=== PATIENT | female | born 1960 | race African-American/Black ===

== ENCOUNTER 2023-08-13 22:24 | Emergency (ER) | payer OTHER ==
[~2023-08-13] VITALS: Ht 160 cm; Wt 60.0 kg
[2023-08-13 22:28] VITALS: O2SAT 98
[2023-08-13] MEDS ORDERED: KETOROLAC 30MG/ML VIAL IV STA (22:35)
[2023-08-13] MEDS: SODIUM CHLORIDE 0.9% 1,000 ML IV ONE (22:45)
[2023-08-13 23:51] LABS: BASOPHILS % 0.7 % (0.0-2.0); EOSINOPHILS % 0.7 % (0.0-5.0); HEMATOCRIT. 39.2 % (36.0-48.0); HEMOGLOBIN. 12.8 g/dL (12.0-16.0); MEAN CORPUSCULAR HEMOGLOBIN 30.2 pg (28.0-32.0); MEAN CORPUSCULAR HGB CONC 32.7 g/dL (31.0-37.0); MEAN CORPUSCULAR VOLUME 92.1 fL (81.0-99.0); MEAN PLATELET VOLUME 7.7 fl (7.4-10.4); MONOCYTES % 11.4 % (2.0-8.0); NEUTROPHILS % 58.2 % (40.0-76.0); PLATELET 325 x1000/uL (130-400); RED BLOOD CELL COUNT 4.26 mill/uL (4.2-5.4); RED CELL DISTRIBUTION WIDTH 13.2 % (11.6-14.6); WHITE BLOOD COUNT 8.7 x1000/uL (4.5-11.0)
[2023-08-13] MEDS: KETOROLAC 30MG/ML VIAL IV NR (23:54)
[2023-08-13 23:57] LABS: CHLORIDE 107 mEq/L (98-107); POTASSIUM 3.6 mEq/L (3.5-5.1); SODIUM 141 mEq/L (136-145)
[2023-08-13 23:58] LABS: CARBON DIOXIDE 25 mEq/L (21-32)
[2023-08-14 00:03] LABS: CREATININE 0.6 mg/dL (0.6-1.0); GLUCOSE 92 mg/dL (70-105); UREA NITROGEN BLOOD 7 mg/dL (9-23)
[2023-08-14 00:04] LABS: INR 1.1; PROTHROMBIN TIME 12.2 sec (9.6-11.0); TROPONIN I HIGH SENSITIVITY < 4 ng/L (3.0-34)
[2023-08-14 00:05] LABS: ALANINE AMINOTRANSFERASE 16 IU/L (10-49); ALBUMIN 4.5 g/dL (3.2-4.8); ASPARTATE AMINOTRANSFERASE 26 IU/L (<34); BILIRUBIN TOTAL 0.3 mg/dL (0.1-1.0); PROTEIN TOTAL 7.8 g/dL (6.0-8.3)
[2023-08-14 00:06] LABS: BILIRUBIN DIRECT < 0.1 mg/dL (<=3.0)
[2023-08-14 00:28] LABS: CLARITY URINE CLEAR (CLEAR); COLOR URINE YELLOW (YELLOW); GLUCOSE URINE NEGATIVE (NEGATIVE); KETONES URINE 1+ (NEGATIVE); LEUKOCYTE ESTERASE URINE NEGATIVE (NEGATIVE); NITRITE URINE NEGATIVE (NEGATIVE); OCCULT BLOOD URINE NEGATIVE (NEGATIVE); PH URINE 6.5 (4.5-8.0); PROTEIN URINE NEGATIVE (NEGATIVE); SPECIFIC GRAVITY URINE 1.023 (1.005-1.030); UROBILINOGEN URINE 0.2 E.U./dL (0.2-1.0)
[2023-08-14] MEDS: IOHEXOL-300 100 ML BOTTLE ONE (00:59)
[2023-08-14] MEDS: HYDRALAZINE 20MG/ML VIAL IV ONE (02:07)
[2023-08-14] MEDS: CEFTRIAXONE 1GM/50ML 50 ML IV ONE (02:07)
[2023-08-14] MEDS: AZITHROMYCIN 500MG/250ML 250 ML IV SCH (02:08)
[2023-08-14] MEDS: MORPHINE SULFATE 2 MG/ML CPJ (NOT FOR IM USE) IV ONE (02:21)
[2023-08-14 02:35] LABS: TROPONIN I HIGH SENSITIVITY 6 ng/L (3.0-34)
[2023-08-14] MEDS ORDERED: AZIT500T8 MT (03:58)
[2023-08-14] MEDS: ACETAMINOPHEN 325MG TABLET PO ONE (05:05)
[2023-08-14 05:10] VITALS: BP 152/77; PULSE 88; RESP 21; TEMP 97.8
== END 2023-08-14 05:51 | disposition home or self-care (01) ==
LOC: ER 22:24
DX: J18.9 Pneumonia, unspecified organism (principal); I10 Essential (primary) hypertension
CPT/HCPCS: 99285; 96361; 71045; 96375 ×2; 80076; 80048; 83690; 85025; 85610; 84484 ×2; 36415 ×2; 74177; 96365; 76705; 81003; 96368; J1885; J7030; Q9967; J0456; J0696; J0360

== ENCOUNTER 2024-01-28 14:32 | Emergency (ER) | payer MEDICAID ==
[~2024-01-28] VITALS: Ht 167.6 cm; Wt 81.0 kg
[~2024-01-28 14:32] MED LIST: AZIT500T8 MT
[2024-01-28 14:34] VITALS: TEMP 98.6; O2SAT 99
[2024-01-28 15:08] VITALS: BP 176/109; PULSE 92; RESP 16
[2024-01-28] MEDS: IBUPROFEN 600MG TABLET PO ONE (15:08)
[2024-01-28] MEDS ORDERED: IBUP-2029 MT (16:21)
== END 2024-01-28 17:15 | disposition home or self-care (01) ==
LOC: ER 14:43
DX: S92.901A Unspecified fracture of right foot, initial encounter for closed fracture (principal); Z86.59 Personal history of other mental and behavioral disorders; W18.30XA Fall on same level, unspecified, initial encounter; Y93.89 Activity, other specified; Y92.89 Other specified places as the place of occurrence of the external cause; Y99.8 Other external cause status
CPT/HCPCS: 29515; 73610; 73630; 99284

== ENCOUNTER 2024-05-18 12:35 | Emergency (ER) | payer MEDICAID ==
[~2024-05-18] VITALS: Ht 165.1 cm; Wt 60.0 kg
[~2024-05-18 12:35] MED LIST changes: +IBUP-2029 MT
[2024-05-18 12:38] VITALS: O2SAT 98
[2024-05-18 13:17] VITALS: BP 177/99; PULSE 88; RESP 16; TEMP 36.7; O2SAT 98
[2024-05-18 14:52] LABS: CHLORIDE 101 mEq/L (98-107); POTASSIUM 3.2 mEq/L (3.5-5.1); SODIUM 142 mEq/L (136-145)
[2024-05-18 14:53] LABS: CALCIUM 9.6 mg/dL (8.7-10.4); CARBON DIOXIDE 28 mEq/L (21-32)
[2024-05-18 14:57] LABS: BASOPHILS % 0.9 % (0.0-2.0); EOSINOPHILS % 0.4 % (0.0-5.0); HEMATOCRIT. 37.2 % (36.0-48.0); LYMPHOCYTES % 40.8 % (20.0-50.0); MEAN CORPUSCULAR HEMOGLOBIN 30.1 pg (28.0-32.0); MEAN CORPUSCULAR HGB CONC 32.1 g/dL (31.0-37.0); MEAN CORPUSCULAR VOLUME 93.7 fL (81.0-99.0); MEAN PLATELET VOLUME 8.4 fl (7.4-10.4); MONOCYTES % 10.9 % (2.0-8.0); PLATELET 302 x1000/uL (130-400); RED BLOOD CELL COUNT 3.97 mill/uL (4.2-5.4); RED CELL DISTRIBUTION WIDTH 14.3 % (11.6-14.6); WHITE BLOOD COUNT 5.3 x1000/uL (4.5-11.0)
[2024-05-18 14:58] LABS: CREATININE 0.6 mg/dL (0.6-1.0); GLUCOSE 82 mg/dL (70-105); UREA NITROGEN BLOOD 6 mg/dL (9-23)
[2024-05-18 14:59] LABS: TROPONIN I HIGH SENSITIVITY 10 ng/L (3.0-34)
[2024-05-18 15:06] LABS: INR 1.1; PROTHROMBIN TIME 11.9 sec (9.6-11.0)
[2024-05-18 15:38] LABS: CLARITY URINE CLEAR (CLEAR); COLOR URINE YELLOW (YELLOW); GLUCOSE URINE NEGATIVE (NEGATIVE); KETONES URINE TRACE (NEGATIVE); LEUKOCYTE ESTERASE URINE NEGATIVE (NEGATIVE); NITRITE URINE NEGATIVE (NEGATIVE); OCCULT BLOOD URINE NEGATIVE (NEGATIVE); PROTEIN URINE NEGATIVE (NEGATIVE); SPECIFIC GRAVITY URINE 1.008 (1.005-1.030); UROBILINOGEN URINE 0.2 E.U./dL (0.2-1.0)
== END 2024-05-18 15:51 | disposition home or self-care (01) ==
LOC: ER 12:35
DX: R25.1 Tremor, unspecified (principal); E78.00 Pure hypercholesterolemia, unspecified; I10 Essential (primary) hypertension; Z86.59 Personal history of other mental and behavioral disorders
CPT/HCPCS: 36415; 80048; 81003; 84484; 85025; 99283